=== PATIENT | female | born 1945 | race Caucasian/White ===

== ENCOUNTER → 2016-12-05 | Outpatient (CLI) | payer MEDICARE, BC ==
[~2016-12-05] MED LIST: ASPIRIN 81MG TA81 MG PO; CENTRUM SILVER1 TAB PO; IBUPROFEN200 MG PO; LISINOPRIL 10MG10 MG PO; LISINOPRIL5 MG PO; MELOXICAM15 MG PO; METFORMIN HCL500 MG; METFORMIN500 MG PO; PRAVACHOL40 MG PO; PREDNISONE 20MG20 MG PO; ROBAXIN 500 MG500 MG PO; SIMVASTATIN20 MG PO; TYLENOL ARTHRI650 MG PO
--- NOTE | 2016-12-11 10:01 | RADIOLOGY REPORT PS360 ---
. DIG MAMM-SCREEN YUVAL W/CAD CAD Screening ORDERING PHYSICIAN : Kevin Parr MD PATIENT AGE: 71 years GENDER: Female COMPARISON: Previous mammograms: November 2014, January 2011 INDICATION: Routine screening 71-year-old no hormones no complaints previous stereotactic biopsy right breast TECHNIQUE: Standard CC and MLO images were obtained. R2 CAD reviewed. FINDINGS: Low-density breast bilaterally with no dominant mass nor suspicious calcifications either breast. RIGHT BREAST: No significant new findings. Scattered minimal of density right breast are similar to previous studies. Note previous percutaneous biopsy metallic marker at the inferior right breast. Numerous punctate calcifications central right breast appears similar to prior studies and fairly scattered. Given there stability and morphology these can be followed LEFT BREAST: No new areas of concern. Scattered tiny of areas of minor density have remained fairly stable and can be followed in one year. Density IMPRESSION: Stable bilateral mammogram with no significant new findings. Bilateral follow-up in one year recommended BI-RADS CATEGORY: 2_Benign RECOMMENDED FOLLOWUP: 12M 12 MONTH FOLLOW-UP (A letter has been sent to the patient regarding results of the study.)
== END ==
LOC: RAD 16:39
DX: Z12.31 Encounter for screening mammogram for malignant neoplasm of breast (principal)
CPT/HCPCS: G0202